=== PATIENT | male | born 1975 | race Asian ===

== ENCOUNTER 2025-05-01 19:26 | Emergency (ER) | payer MEDICAID, OTHER ==
[~2025-05-01] VITALS: Ht 170.2 cm; Wt 75.0 kg
[2025-05-01 19:32] VITALS: BP 143/95; PULSE 84; RESP 18; TEMP 97.9; O2SAT 100
[2025-05-01] MEDS ORDERED: LIDO-57 TP (19:53)
[2025-05-01] MEDS ORDERED: IBUP-1492 PO (19:53)
[2025-05-01] MEDS ORDERED: ACET-3385 PO (19:53)
[2025-05-01] MEDS ORDERED: LIDOCAINE 5% TRANSDERMAL PATCH TD ONE (20:00)
[2025-05-01] MEDS ORDERED: IBUPROFEN 600 MG TABLET PO ONE (20:00)
== END 2025-05-01 20:18 | disposition home or self-care (01) ==
LOC: EMS 19:26
DX: S39.012A Strain of muscle, fascia and tendon of lower back, initial encounter (principal); F17.210 Nicotine dependence, cigarettes, uncomplicated; V43.52XA Car driver injured in collision with other type car in traffic accident, initial encounter; Y93.89 Activity, other specified; Y92.488 Other paved roadways as the place of occurrence of the external cause; Y99.8 Other external cause status
CPT/HCPCS: 99283; Z7502